=== PATIENT | male | born 1985 | race Caucasian/White ===

== ENCOUNTER 2022-10-17 20:24 | Inpatient (IN) | payer BC ==
[~2022-10-17 20:24] MED LIST: Iopamidol-370 76% 500 ML MDV (1 ML CHARGE) ONE
[2022-10-17 22:11] LABS: #Basophils 0.2 thou/uL (0.0-0.2); #Eosinphils 0.2 thou/uL (0.0-0.7); #Monocytes 3.4 thou/uL (0.11-0.59); #Neutrophils 21.7 thou/uL (1.40-6.50); %Basophils 0.7 % (0.0-1.0); %Eosinophils 0.7 % (0.0-10.0); %Lymphocytes 3.9 % (21.0-51.0); %Monocytes 12.8 % (0.0-10.0); %Neutrophils 80.7 % (42.0-75.0); Hematocrit 26.2 % (42.0-52.0); Hemoglobin 8.5 g/dL (14.0-18.0); Mean Corpuscular HGB CONC 32.4 g/dL (32.0-36.0); Mean Corpuscular Hemoglobin 27.6 pg (27.0-31.0); Mean Corpuscular Volume 85.1 fl (78.0-98.0); Platelet Count 192 10x3/uL (130-400); RBC Distribution Width 19.5 % (11.5-14.5); Red Blood Cell (RBC) Count 3.08 mill/uL (4.70-6.10); White Blood Cell (WBC) Count 26.9 10x3/uL (4.8-10.8)
[2022-10-17 22:13] LABS: Manual Diff?? YES
[2022-10-17] MEDS ORDERED: Acetaminophen 500 MG TAB ONE (22:16)
[2022-10-17] MEDS ORDERED: Piperacillin/Tazobactam 4.5 GM VIAL ONE (22:17)
[2022-10-17] MEDS ORDERED: Ondansetron PF 4 MG/2 ML Vial ONE (22:17)
[2022-10-17] MEDS ORDERED: Morphine 4 MG/ML VIAL ONE (22:17)
[2022-10-17 22:23] LABS: Bilirubin Negative (Negative); Blood, Urine 3+ (Negative); CAUTI Indications for Culture Pelvic or flank pain; Clarity Clear (Clear); Glucose, Urine (Dipstick) Normal (Negative); Ketone, Urine Negative (Negative); Leukocyte 250 Leu/uL (Negative); Nitrite Negative (Negative); Protein, Urine (Dipstick) 200 mg/dL (Neg-Trace); Specific Gravity, Urine 1.015 (1.002-1.036); Squamous Epithelial None Seen HPF (0-3); Urobilinogen Normal mg/dL (Less than 2); WBC/HPF 21-50 HPF (0-3); pH, Urine 6.5 (5.0-9.0)
[2022-10-17] MEDS ORDERED: VANCOMYCIN 1.25 GM/250 ML BAG 1.25 GM in Premix Bag 1 BAG IVPB SCH (22:30)
[2022-10-17 22:32] LABS: ALT (SGPT) 64 U/L (8-55); AST (SGOT) 50 U/L (5-34); Albumin 3.2 g/dL (3.5-5.0); Alkaline Phosphatase 271 U/L (40-110); Anion Gap 13 mmol/L (10-20); BUN (Urea Nitrogen) 18 mg/dL (8.9-20.6); Bilirubin, Total 0.8 mg/dL (0.2-1.2); Calc. Creatinine Clearance 0 mL/min (70-130); Calcium 9.1 mg/dL (7.8-10.44); Carbon Dioxide 25 mmol/L (22-29); Chloride 94 mmol/L (98-107); Estimated GFR 98; Globulin 3.8 g/dL (2.4-3.5); Glucose 121 mg/dL (70-105); Potassium 4.2 mmol/L (3.5-5.1); Sodium 128 mmol/L (136-145)
[2022-10-17 22:33] LABS: Lipase 20 U/L (8-78)
[2022-10-17 22:34] LABS: CellaVision Operator ID lab.sh2; Lymphocytes 5 % (21-51); Monocytes 6 % (0-10); Neutrophil 87 % (42-75); Platelet Adequacy Comment Platelets Normal; Polychromasia MODERATE = 3-4 cells HPF (0-2); Smudge Cells 6.1 %; Target Cells SLIGHT = 2-5 cells HPF (0-1); Tear Drops SLIGHT = 2-5 cells HPF (0-1); Total Cell Count 99
[2022-10-17 22:35] LABS: Bacteria/HPF 2+ HPF (None Seen)
[2022-10-17 22:36] LABS: Urine Culture Reflex Yes Yes
[2022-10-17 22:53] LABS: SARS-CoV-2 NAA Rapid Test Not Detected (NotDetected)
[2022-10-18] MEDS ORDERED: Acetaminophen 325 MG TAB PO PRN (03:12)
[2022-10-18 04:25] VITALS: BMI 25.7
[2022-10-18] MEDS ORDERED: Piperacillin/Tazobactam 3.375 GM in Sodium Chloride 0.9% 100 ML IVPB SCH (05:00)
[2022-10-18 05:08] LABS: #Basophils 0.1 thou/uL (0.0-0.2); #Eosinphils 0.5 thou/uL (0.0-0.7); #Monocytes 1.4 thou/uL (0.11-0.59); %Basophils 0.3 % (0.0-1.0); %Eosinophils 2.7 % (0.0-10.0); %Lymphocytes 3.5 % (21.0-51.0); %Monocytes 7.6 % (0.0-10.0); %Neutrophils 84.5 % (42.0-75.0); Hematocrit 24.8 % (42.0-52.0); Hemoglobin 7.7 g/dL (14.0-18.0); Mean Corpuscular Hemoglobin 26.7 pg (27.0-31.0); Mean Corpuscular Volume 86.1 fl (78.0-98.0); Mean Platelet Volume 10.2 fL (7.4-10.4); Platelet Count 171 10x3/uL (130-400); RBC Distribution Width 19.6 % (11.5-14.5); Red Blood Cell (RBC) Count 2.88 mill/uL (4.70-6.10); White Blood Cell (WBC) Count 18.9 10x3/uL (4.8-10.8)
[2022-10-18 05:36] LABS: AST (SGOT) 44 U/L (5-34); Albumin 2.9 g/dL (3.5-5.0); Anion Gap 13 mmol/L (10-20); BUN (Urea Nitrogen) 18 mg/dL (8.9-20.6); Calc. Creatinine Clearance 127 mL/min (70-130); Carbon Dioxide 25 mmol/L (22-29); Chloride 100 mmol/L (98-107); Estimated GFR 108; Globulin 2.9 g/dL (2.4-3.5); Glucose 103 mg/dL (70-105); Potassium 3.9 mmol/L (3.5-5.1); Protein, Total 5.8 g/dL (6.0-8.3); Sodium 134 mmol/L (136-145)
[2022-10-18] MEDS: Sodium Chloride 0.9% 1,000 ML IV SCH ×4 (05:43→20:59)
[2022-10-18 05:50] LABS: ALT (SGPT) 59 U/L (8-55); Alkaline Phosphatase 252 U/L (40-110)
[2022-10-18] MEDS: Vancomycin 1 GM in Premix Bag 1 BAG IVPB SCH ×3 (08:25→23:58)
[2022-10-18] MEDS: Morphine 4 MG/ML VIAL SLOW IVP PRN (08:29)
[2022-10-18] MEDS ORDERED: HYDROcodone/Acetaminophen 5/325 mg Tablet PO PRN (09:55)
[2022-10-18] MEDS ORDERED: Meropenem 1 GM in Sodium Chloride 0.9% 100 ML IVPB SCH ×2 (12:30→14:00)
[2022-10-18] MEDS: Ondansetron PF 4 MG/2 ML Vial IVP PRN ×2 (13:08→18:21)
[2022-10-18] MEDS: Meropenem 1 GM in Sodium Chloride 0.9% 100 ML IVPB SCH (20:58)
[2022-10-18 23:26] LABS: Vancomycin, Trough 17.7 ug/mL
[2022-10-19] MEDS: Meropenem 1 GM in Sodium Chloride 0.9% 100 ML IVPB SCH ×3 (05:24→21:21)
[2022-10-19 06:55] LABS: #Basophils 0.1 thou/uL (0.0-0.2); #Eosinphils 1.1 thou/uL (0.0-0.7); #Monocytes 1.6 thou/uL (0.11-0.59); #Neutrophils 9.9 thou/uL (1.40-6.50); %Basophils 0.5 % (0.0-1.0); %Eosinophils 8.1 % (0.0-10.0); %Monocytes 11.8 % (0.0-10.0); %Neutrophils 74.5 % (42.0-75.0); Hematocrit 21.9 % (42.0-52.0); Hemoglobin 6.9 g/dL (14.0-18.0); Mean Corpuscular HGB CONC 31.5 g/dL (32.0-36.0); Mean Corpuscular Hemoglobin 26.6 pg (27.0-31.0); Mean Corpuscular Volume 84.6 fl (78.0-98.0); Mean Platelet Volume 10.3 fL (7.4-10.4); Platelet Count 214 10x3/uL (130-400); RBC Distribution Width 19.8 % (11.5-14.5); Red Blood Cell (RBC) Count 2.59 mill/uL (4.70-6.10); White Blood Cell (WBC) Count 13.3 10x3/uL (4.8-10.8)
[2022-10-19 07:18] LABS: Anion Gap 12 mmol/L (10-20); BUN (Urea Nitrogen) 11 mg/dL (8.9-20.6); Calc. Creatinine Clearance 136 mL/min (70-130); Carbon Dioxide 23 mmol/L (22-29); Chloride 99 mmol/L (98-107); Estimated GFR 113; Glucose 105 mg/dL (70-105); Potassium 3.5 mmol/L (3.5-5.1); Sodium 130 mmol/L (136-145)
[2022-10-19] MEDS: Sodium Chloride 0.9% 1,000 ML IV SCH ×3 (08:32→23:03)
[2022-10-19] MEDS: Vancomycin 1 GM in Premix Bag 1 BAG IVPB SCH ×2 (08:33→15:48)
[2022-10-19] MEDS: Ondansetron PF 4 MG/2 ML Vial IVP PRN (08:33)
[2022-10-19] MEDS: Morphine 4 MG/ML VIAL SLOW IVP PRN (08:49)
[2022-10-19] MEDS ORDERED: Bisacodyl 5 MG TAB PO PRN (09:21)
[2022-10-19] MEDS ORDERED: Promethazine HCl 25 MG in Sodium Chloride 0.9% 50 ML IVPB PRN (11:32)
[2022-10-19] MEDS ORDERED: Ondansetron PF 4 MG/2 ML Vial IVP PRN (17:51)
[2022-10-19 18:54] LABS: Magnesium 1.7 mg/dL (1.6-2.6); Potassium 3.9 mmol/L (3.5-5.1)
[2022-10-19] MEDS ORDERED: Magnesium Sulfate In Water 4 GM in Premix Bag 1 BAG IVPB SCH (21:00)
[2022-10-20] MEDS: Vancomycin 1 GM in Premix Bag 1 BAG IVPB SCH ×3 (00:41→15:59)
[2022-10-20] MEDS: Meropenem 1 GM in Sodium Chloride 0.9% 100 ML IVPB SCH ×3 (05:20→22:24)
[2022-10-20 05:30] LABS: #Basophils 0.1 thou/uL (0.0-0.2); #Eosinphils 1.3 thou/uL (0.0-0.7); #Monocytes 1.1 thou/uL (0.11-0.59); #Neutrophils 6.1 thou/uL (1.40-6.50); %Basophils 0.5 % (0.0-1.0); %Eosinophils 13.8 % (0.0-10.0); %Lymphocytes 7.7 % (21.0-51.0); %Monocytes 11.7 % (0.0-10.0); %Neutrophils 65.5 % (42.0-75.0); Hemoglobin 6.8 g/dL (14.0-18.0); Mean Corpuscular HGB CONC 30.9 g/dL (32.0-36.0); Mean Corpuscular Hemoglobin 26.2 pg (27.0-31.0); Mean Corpuscular Volume 84.6 fl (78.0-98.0); Mean Platelet Volume 10.2 fL (7.4-10.4); Platelet Count 253 10x3/uL (130-400); RBC Distribution Width 20.1 % (11.5-14.5); White Blood Cell (WBC) Count 9.3 10x3/uL (4.8-10.8)
[2022-10-20 05:57] LABS: Anion Gap 11 mmol/L (10-20); BUN (Urea Nitrogen) 13 mg/dL (8.9-20.6); Calc. Creatinine Clearance 138 mL/min (70-130); Calcium 7.8 mg/dL (7.8-10.44); Carbon Dioxide 26 mmol/L (22-29); Chloride 100 mmol/L (98-107); Estimated GFR 114; Glucose 101 mg/dL (70-105); Magnesium 2.4 mg/dL (1.6-2.6); Potassium 3.5 mmol/L (3.5-5.1); Sodium 133 mmol/L (136-145)
[2022-10-20] MEDS: Sodium Chloride 0.9% 1,000 ML IV SCH ×2 (08:12→17:28)
[2022-10-20] MEDS: Morphine 4 MG/ML VIAL SLOW IVP PRN (09:28)
[2022-10-20] MEDS ORDERED: Potassium Chloride 20 MEQ TAB PO SCH (09:30)
[2022-10-20] MEDS ORDERED: Metoprolol Tartrate 25 MG TAB PO SCH (09:30)
[2022-10-20] MEDS ORDERED: Iopamidol 300 61% 30 ML VIAL ONE (11:24)
[2022-10-20] MEDS ORDERED: Regadenoson 0.4 MG/5 ML SYRINGE ONE (14:09)
[2022-10-20] MEDS ORDERED: Sterile Water 10 ML VIAL IVP SCH (15:00)
[2022-10-20] MEDS ORDERED: Activase 2 MG VIAL CATH SCH (15:00)
[2022-10-20] MEDS: Metoprolol Tartrate 25 MG TAB PO SCH (22:23)
[2022-10-20] MEDS ORDERED: Vancomycin 1 GM in Premix Bag 1 BAG IVPB SCH (22:45)
[2022-10-20 22:57] LABS: Hemoglobin 8.4 g/dL (14.0-18.0)
[2022-10-20 23:30] LABS: Vancomycin, Trough 21.6 ug/mL
[2022-10-21] MEDS ORDERED: Polyethylene Glycol 3350 17 GM Packet PO SCH (00:15)
[2022-10-21] MEDS ORDERED: Vancomycin 1 GM in Premix Bag 1 BAG IVPB SCH (01:00)
[2022-10-21] MEDS ORDERED: Vancomycin 1.5 GRAM/300 ML BAG 1.5 GM in Premix Bag 1 BAG IVPB SCH (01:00)
[2022-10-21] MEDS: Sodium Chloride 0.9% 1,000 ML IV SCH ×4 (01:00→20:51)
[2022-10-21] MEDS: Vancomycin 1.5 GRAM/300 ML BAG 1.5 GM in Premix Bag 1 BAG IVPB SCH ×2 (01:36→14:08)
[2022-10-21 05:18] LABS: Hematocrit 26.1 % (42.0-52.0); Hemoglobin 8.3 g/dL (14.0-18.0); Mean Corpuscular HGB CONC 31.8 g/dL (32.0-36.0); Mean Corpuscular Hemoglobin 27.1 pg (27.0-31.0); Mean Corpuscular Volume 85.3 fl (78.0-98.0); Mean Platelet Volume 9.9 fL (7.4-10.4); Platelet Count 303 10x3/uL (130-400); RBC Distribution Width 19.2 % (11.5-14.5); Red Blood Cell (RBC) Count 3.06 mill/uL (4.70-6.10)
[2022-10-21 05:30] LABS: Delete Auto Diff?? YES; Manual Diff?? YES
[2022-10-21] MEDS: Meropenem 1 GM in Sodium Chloride 0.9% 100 ML IVPB SCH ×3 (05:40→20:50)
[2022-10-21 05:48] LABS: Anion Gap 12 mmol/L (10-20); BUN (Urea Nitrogen) 10 mg/dL (8.9-20.6); Calc. Creatinine Clearance 146 mL/min (70-130); Calcium 8.3 mg/dL (7.8-10.44); Carbon Dioxide 25 mmol/L (22-29); Chloride 102 mmol/L (98-107); Estimated GFR 116; Glucose 100 mg/dL (70-105); Potassium 3.7 mmol/L (3.5-5.1); Sodium 135 mmol/L (136-145)
[2022-10-21 05:54] LABS: Band 22 % (5-11); CellaVision Operator ID LAB.CLH1; Eosinophils 10 % (0-10); Hypochromia SLIGHT = 6-15 cells HPF (0-5); Lymphocytes 6 % (21-51); Macrocytosis SLIGHT = 6-15 cells HPF (0-5); Monocytes 8 % (0-10); Neutrophil 55 % (42-75); Platelet Adequacy Comment Platelets Normal; Poikilocytosis SLIGHT = 6-15 cells HPF (0-5); Polychromasia SLIGHT = 2-3 cells HPF (0-2); Total Cell Count 101
[2022-10-21] MEDS: Metoprolol Tartrate 25 MG TAB PO SCH ×2 (08:16→20:49)
[2022-10-21] MEDS: Polyethylene Glycol 3350 17 GM Packet PO SCH (08:17)
[2022-10-21] MEDS: Morphine 4 MG/ML VIAL SLOW IVP PRN (08:35)
[2022-10-22 01:25] LABS: Vancomycin, Trough 16.8 ug/mL
[2022-10-22] MEDS: Vancomycin 1.5 GRAM/300 ML BAG 1.5 GM in Premix Bag 1 BAG IVPB SCH ×2 (01:47→13:13)
[2022-10-22] MEDS: Sodium Chloride 0.9% 1,000 ML IV SCH ×2 (01:47→10:31)
[2022-10-22] MEDS: Meropenem 1 GM in Sodium Chloride 0.9% 100 ML IVPB SCH ×2 (04:52→13:13)
[2022-10-22 05:01] LABS: Hematocrit 27.5 % (42.0-52.0); Hemoglobin 8.7 g/dL (14.0-18.0); Mean Corpuscular HGB CONC 31.6 g/dL (32.0-36.0); Mean Corpuscular Hemoglobin 26.9 pg (27.0-31.0); Mean Corpuscular Volume 84.9 fl (78.0-98.0); Mean Platelet Volume 9.8 fL (7.4-10.4); Platelet Count 338 10x3/uL (130-400); RBC Distribution Width 19.5 % (11.5-14.5); Red Blood Cell (RBC) Count 3.24 mill/uL (4.70-6.10); White Blood Cell (WBC) Count 10.2 10x3/uL (4.8-10.8)
[2022-10-22 05:10] LABS: Delete Auto Diff?? YES; Manual Diff?? YES
[2022-10-22 05:30] LABS: Anion Gap 10 mmol/L (10-20); BUN (Urea Nitrogen) 11 mg/dL (8.9-20.6); Calc. Creatinine Clearance 143 mL/min (70-130); Carbon Dioxide 28 mmol/L (22-29); Chloride 101 mmol/L (98-107); Estimated GFR 115; Glucose 94 mg/dL (70-105); Potassium 3.9 mmol/L (3.5-5.1); Sodium 135 mmol/L (136-145)
[2022-10-22 05:50] LABS: Anisocytosis MODERATE=16-30 cells HPF (0-5); CellaVision Operator ID lab.sh2; Eosinophils 6 % (0-10); Hypochromia SLIGHT = 6-15 cells HPF (0-5); Lymphocytes 6 % (21-51); Macrocytosis SLIGHT = 6-15 cells HPF (0-5); Monocytes 6 % (0-10); Neutrophil 79 % (42-75); Platelet Adequacy Comment Platelets Normal; Polychromasia MODERATE = 3-4 cells HPF (0-2); Reactive Lymphocytes 3 % (0-10); Smudge Cells 39.4 %; Target Cells SLIGHT = 2-5 cells HPF (0-1); Total Cell Count 99
[2022-10-22] MEDS: Polyethylene Glycol 3350 17 GM Packet PO SCH (08:12)
[2022-10-22] MEDS: Morphine 4 MG/ML VIAL SLOW IVP PRN (08:32)
[2022-10-22 12:20] VITALS: BP 116/76; TEMP 97.6
== END 2022-10-22 17:22 | disposition home or self-care (01) | DRG 872 ==
LOC: ERS 20:24 → 2SW 10-18 02:58 → OBSVTOIN 10-19 02:56
PROVIDERS: ADMIT Family Medicine; ATTEND Internal Medicine
PROC: 0T25X0Z Change Drainage Device in Kidney, External Approach (ICD-10-PCS; principal; 2022-10-20)
PROC: 30233N1 Transfusion of Nonautologous Red Blood Cells into Peripheral Vein, Percutaneous Approach (ICD-10-PCS; 2022-10-20)
PROC: 3E03329 Introduction of Other Anti-infective into Peripheral Vein, Percutaneous Approach (ICD-10-PCS; 2022-10-20)
DX: A41.9 Sepsis, unspecified organism (principal); N39.0 Urinary tract infection, site not specified; E87.1 Hypo-osmolality and hyponatremia; I47.20 Ventricular tachycardia, unspecified; C77.9 Secondary and unspecified malignant neoplasm of lymph node, unspecified; C79.00 Secondary malignant neoplasm of unspecified kidney and renal pelvis; D64.9 Anemia, unspecified; Z86.718 Personal history of other venous thrombosis and embolism; Z20.822 Contact with and (suspected) exposure to COVID-19; Z98.890 Other specified postprocedural states; C62.90 Malignant neoplasm of unspecified testis, unspecified whether descended or undescended; Z79.899 Other long term (current) drug therapy
CPT/HCPCS: 36415; 36430; 50435; 71045; 74177; 78452; 80048; 80053; 80202; 81001; 82105; 83605; 83615; 83690; 83735; 84702; 85025; 86140; 86850; 86900; 86901; 87040; 87086; 93005; 93017; 93306; 96365; 96366; 96368; 96375; 97139; A9500; C1729; J1642; J1650; J2185; J2270; J2405; J2543; J2785; J2997; J3370; J3370-JW; J3475; J3490; J7050; P9016; Q9967

== ENCOUNTER 2022-12-09 07:19 | Outpatient (CLI) | payer BC ==
[2022-12-09] MEDS ORDERED: Iopamidol 370 76% 100 ML VIAL ONE (09:24)
== END 2022-12-09 07:20 | disposition home or self-care (01) ==
LOC: BICCT 07:19
PROVIDERS: ATTEND Internal Medicine Hematology & Oncology
DX: C62.91 Malignant neoplasm of right testis, unspecified whether descended or undescended (principal); R59.0 Localized enlarged lymph nodes; R14.3 Flatulence
CPT/HCPCS: 71260; 74177; Q9967

== ENCOUNTER 2022-12-21 13:15 | Inpatient (IN) | payer BC ==
[2022-12-21 13:51] LABS: Hematocrit 33.1 % (42.0-52.0); Hemoglobin 10.7 g/dL (14.0-18.0); Mean Corpuscular HGB CONC 32.3 g/dL (32.0-36.0); Mean Corpuscular Hemoglobin 27.3 pg (27.0-31.0); Mean Corpuscular Volume 84.4 fl (78.0-98.0); Mean Platelet Volume 9.1 fL (7.4-10.4); Platelet Count 233 10x3/uL (130-400); RBC Distribution Width 21.1 % (11.5-14.5); Red Blood Cell (RBC) Count 3.92 mill/uL (4.70-6.10); White Blood Cell (WBC) Count 13.7 10x3/uL (4.8-10.8)
[2022-12-21 13:53] LABS: Delete Auto Diff?? YES; Manual Diff?? YES
[2022-12-21 14:20] LABS: ALT (SGPT) 29 U/L (8-55); AST (SGOT) 12 U/L (5-34); Albumin 3.4 g/dL (3.5-5.0); Alkaline Phosphatase 70 U/L (40-110); Anion Gap 10 mmol/L (10-20); BUN (Urea Nitrogen) 31 mg/dL (8.9-20.6); Bilirubin, Total 0.9 mg/dL (0.2-1.2); Calc. Creatinine Clearance 0 mL/min (70-130); Calcium 7.9 mg/dL (7.8-10.44); Carbon Dioxide 21 mmol/L (22-29); Chloride 102 mmol/L (98-107); Estimated GFR 95; Globulin 2.1 g/dL (2.4-3.5); Glucose 110 mg/dL (70-105); Potassium 3.5 mmol/L (3.5-5.1); Protein, Total 5.5 g/dL (6.0-8.3); Sodium 129 mmol/L (136-145)
[2022-12-21 14:23] LABS: Anisocytosis MODERATE=16-30 cells HPF (0-5); Burr Cells SLIGHT = 2-5 cells HPF (0-1); CellaVision Operator ID LAB.KB; Lymphocytes 1 % (21-51); Neutrophil 99 % (42-75); Ovalocytes SLIGHT = 2-5 cells HPF (0-1); Platelet Adequacy Comment Platelets Normal; Polychromasia SLIGHT = 2-3 cells HPF (0-2); Total Cell Count 100
[2022-12-21] MEDS ORDERED: Ondansetron PF 4 MG/2 ML Vial ONE ×2 (14:39→14:47)
[2022-12-21 15:42] LABS: Lipase 18 U/L (8-78); Magnesium 1.2 mg/dL (1.6-2.6)
[2022-12-21] MEDS ORDERED: Acetaminophen 325 MG TAB PO PRN (16:28)
[2022-12-21] MEDS ORDERED: Loperamide HCl 2 MG CAP PO SCH (16:28)
[2022-12-21] MEDS ORDERED: Loperamide HCl 2 MG CAP ONE (16:35)
[2022-12-21] MEDS ORDERED: Magnesium Sulfate In Water 4 GM in Premix 1 BAG IVPB SCH (16:45)
[2022-12-21] MEDS ORDERED: Diphenoxylate HCl/Atropine Tablet PO SCH (16:45)
[2022-12-21] MEDS ORDERED: HYDROcodone/Acetaminophen 10/325 mg Tablet PO PRN (17:03)
[2022-12-21] MEDS: Sodium Chloride 0.9% 1,000 ML IV SCH (18:16)
[2022-12-21] MEDS: Famotidine 20 MG TAB PO SCH (21:08)
[2022-12-21] MEDS: Apixaban 5 MG TAB PO SCH (21:08)
[2022-12-22 05:28] LABS: Hematocrit 27.9 % (42.0-52.0); Mean Corpuscular HGB CONC 32.3 g/dL (32.0-36.0); Mean Corpuscular Hemoglobin 26.5 pg (27.0-31.0); Mean Corpuscular Volume 82.1 fl (78.0-98.0); Mean Platelet Volume 9.1 fL (7.4-10.4); Platelet Count 159 10x3/uL (130-400); RBC Distribution Width 20.6 % (11.5-14.5)
[2022-12-22 05:32] LABS: Delete Auto Diff?? YES; Manual Diff?? YES
[2022-12-22 05:54] LABS: Anion Gap 12 mmol/L (10-20); BUN (Urea Nitrogen) 19 mg/dL (8.9-20.6); Calc. Creatinine Clearance 158 mL/min (70-130); Calcium 7.3 mg/dL (7.8-10.44); Carbon Dioxide 15 mmol/L (22-29); Chloride 104 mmol/L (98-107); Estimated GFR 119; Glucose 105 mg/dL (70-105); Magnesium 1.9 mg/dL (1.6-2.6); Potassium 3.1 mmol/L (3.5-5.1); Sodium 128 mmol/L (136-145)
[2022-12-22 06:01] LABS: Anisocytosis SLIGHT = 6-15 cells HPF (0-5); Band 2 % (5-11); CellaVision Operator ID lab.abc; Lymphocytes 4 % (21-51); Microcytosis SLIGHT = 6-15 cells HPF (0-5); Monocytes 1 % (0-10); Neutrophil 93 % (42-75); Platelet Adequacy Comment Platelets Normal; Total Cell Count 100
[2022-12-22] MEDS: Sodium Chloride 0.9% 1,000 ML IV SCH ×2 (06:39→16:28)
[2022-12-22] MEDS: Famotidine 20 MG TAB PO SCH ×2 (08:16→19:52)
[2022-12-22] MEDS: Apixaban 5 MG TAB PO SCH ×2 (08:16→19:52)
[2022-12-22] MEDS: Loperamide HCl 2 MG CAP PO PRN ×2 (08:16→16:28)
[2022-12-22] MEDS: OLANZapine 5 MG TAB PO SCH (08:16)
[2022-12-22] MEDS ORDERED: Potassium Chloride 20 MEQ TAB PO SCH (08:30)
[2022-12-22] MEDS ORDERED: Cholestyramine/Aspartame 4 gm Packet PO SCH (10:30)
[2022-12-22] MEDS: Cholestyramine/Aspartame 4 gm Packet PO SCH (21:38)
[2022-12-23] MEDS ORDERED: Potassium Bicarbonate/Cit Ac 25 MEQ TAB PO SCH (08:00)
[2022-12-23] MEDS: Apixaban 5 MG TAB PO SCH (10:01)
[2022-12-23] MEDS: Calcium Carbonate 500 MG ChewTAB PO SCH ×2 (10:02→21:57)
[2022-12-23] MEDS: OLANZapine 5 MG TAB PO SCH (10:02)
[2022-12-23] MEDS: Famotidine 20 MG TAB PO SCH ×2 (10:02→20:43)
[2022-12-23] MEDS: HYDROcodone/Acetaminophen 10/325 mg Tablet PO PRN (10:12)
[2022-12-23] MEDS ORDERED: Iopamidol-370 76% 500 ML MDV (1 ML CHARGE) ONE (11:15)
[2022-12-23] MEDS ORDERED: Iopamidol 300 61% 100 ML VIAL FS ONE (11:29)
[2022-12-23] MEDS: Sodium Chloride 0.9% 1,000 ML IV SCH ×2 (12:29)
[2022-12-23] MEDS: Cholestyramine/Aspartame 4 gm Packet PO SCH (13:28)
[2022-12-23 14:06] LABS: Hematocrit 24.1 % (42.0-52.0); Hemoglobin 8.1 g/dL (14.0-18.0); Mean Corpuscular HGB CONC 33.6 g/dL (32.0-36.0); Mean Corpuscular Hemoglobin 27.4 pg (27.0-31.0); Mean Corpuscular Volume 81.4 fl (78.0-98.0); Mean Platelet Volume 9.1 fL (7.4-10.4); Platelet Count 118 10x3/uL (130-400); RBC Distribution Width 20.5 % (11.5-14.5); Red Blood Cell (RBC) Count 2.96 mill/uL (4.70-6.10); White Blood Cell (WBC) Count 0.5 10x3/uL (4.8-10.8)
[2022-12-23 14:29] LABS: Anion Gap 11 mmol/L (10-20); BUN (Urea Nitrogen) 11 mg/dL (8.9-20.6); Calc. Creatinine Clearance 165 mL/min (70-130); Calcium 7.6 mg/dL (7.8-10.44); Carbon Dioxide 19 mmol/L (22-29); Chloride 98 mmol/L (98-107); Estimated GFR 121; Glucose 74 mg/dL (70-105); Sodium 126 mmol/L (136-145)
[2022-12-23 14:33] LABS: Potassium 2.4 mmol/L (3.5-5.1)
[2022-12-23] MEDS ORDERED: Potassium Chloride 40 MEQ in Premix 1 BAG IVPB SCH (15:00)
[2022-12-23] MEDS: Potassium Chloride 20 MEQ TAB PO SCH ×2 (15:18→21:57)
[2022-12-23] MEDS: Potassium Chloride 20 MEQ in Premix 1 BAG IVPB SCH ×2 (15:19→21:50)
[2022-12-23 15:42] LABS: Hematocrit 24.9 % (42.0-52.0); Hemoglobin 8.3 g/dL (14.0-18.0); Manual Diff?? YES; Mean Corpuscular HGB CONC 33.3 g/dL (32.0-36.0); Mean Corpuscular Hemoglobin 27.6 pg (27.0-31.0); Mean Corpuscular Volume 82.7 fl (78.0-98.0); Mean Platelet Volume 9.4 fL (7.4-10.4); Platelet Count 111 10x3/uL (130-400); RBC Distribution Width 20.6 % (11.5-14.5); Red Blood Cell (RBC) Count 3.01 mill/uL (4.70-6.10); White Blood Cell (WBC) Count 0.6 10x3/uL (4.8-10.8)
[2022-12-23 15:43] LABS: Delete Auto Diff?? YES
[2022-12-23 16:13] LABS: Anisocytosis SLIGHT = 6-15 cells HPF (0-5); Band 33 % (5-11); CellaVision Operator ID LAB.MJL; Dohle Bodies SLIGHT; Eosinophils 1 % (0-10); Large Platelets 4.9 % (0-5); Lymphocytes 35 % (21-51); Metamyelocyte 8 % (0-0); Monocytes 3 % (0-10); Myelocyte 1 % (0-0); Neutrophil 11 % (42-75); Nucleated RBC (Manual Ct) 1 % (0); Ovalocytes SLIGHT = 2-5 cells HPF (0-1); Platelet Adequacy Comment Platelets Decreased; Poikilocytosis SLIGHT = 6-15 cells HPF (0-5); Polychromasia SLIGHT = 2-3 cells HPF (0-2); Reactive Lymphocytes 1 % (0-10); Schistocytes SLIGHT = 2-5 cells HPF (0-1); Total Cell Count 103
[2022-12-23] MEDS ORDERED: Magnesium 2 GM/50 ML(in water) 2 GM in Premix 1 BAG IVPB SCH (16:45)
[2022-12-23] MEDS: Ondansetron PF 4 MG/2 ML Vial IVP PRN (17:41)
[2022-12-23 18:51] LABS: Bacteria/HPF 4+ HPF (None Seen); Bilirubin Negative (Negative); Blood, Urine 3+ (Negative); Clarity Turbid (Clear); Glucose, Urine (Dipstick) Normal (Negative); Ketone, Urine Negative (Negative); Leukocyte 75 Leu/uL (Negative); Nitrite Negative (Negative); Protein, Urine (Dipstick) 100 mg/dL (Neg-Trace); RBC/HPF Greater than 50 HPF (0-3); Specific Gravity, Urine 1.013 (1.002-1.036); Squamous Epithelial None Seen HPF (0-3); Urobilinogen Normal mg/dL (Less than 2); WBC/HPF 21-50 HPF (0-3)
[2022-12-23] MEDS ORDERED: Sodium Chloride 0.9% 500 ML IV SCH (20:45)
[2022-12-24] MEDS ORDERED: Electrolyte Replacement Protocol 1 EACH FS SCH (02:30)
[2022-12-24 07:09] LABS: #Monocytes 0.1 thou/uL (0.11-0.59); #Neutrophils 0.2 thou/uL (1.40-6.50); %Basophils 4.8 % (0.0-1.0); %Lymphocytes 33.3 % (21.0-51.0); %Monocytes 11.9 % (0.0-10.0); Hematocrit 23.6 % (42.0-52.0); Hemoglobin 7.9 g/dL (14.0-18.0); Manual Diff?? YES; Mean Corpuscular HGB CONC 33.5 g/dL (32.0-36.0); Mean Corpuscular Hemoglobin 27.4 pg (27.0-31.0); Mean Corpuscular Volume 81.9 fl (78.0-98.0); Mean Platelet Volume 9.7 fL (7.4-10.4); Platelet Count 93 10x3/uL (130-400); RBC Distribution Width 20.4 % (11.5-14.5); Red Blood Cell (RBC) Count 2.88 mill/uL (4.70-6.10); White Blood Cell (WBC) Count 0.4 10x3/uL (4.8-10.8)
[2022-12-24 07:32] LABS: Anion Gap 12 mmol/L (10-20); BUN (Urea Nitrogen) 8 mg/dL (8.9-20.6); Calc. Creatinine Clearance 141 mL/min (70-130); Calcium 7.4 mg/dL (7.8-10.44); Carbon Dioxide 21 mmol/L (22-29); Chloride 94 mmol/L (98-107); Estimated GFR 115; Glucose 91 mg/dL (70-105); Magnesium 1.4 mg/dL (1.6-2.6); Potassium 2.7 mmol/L (3.5-5.1); Sodium 124 mmol/L (136-145)
[2022-12-24] MEDS ORDERED: Magnesium Sulfate In Water 4 GM in Premix 1 BAG IVPB SCH (08:00)
[2022-12-24] MEDS ORDERED: Potassium Phosphate 15 MMOL in Sodium Chloride 0.9% 100 ML IVPB SCH (08:00)
[2022-12-24] MEDS: Famotidine 20 MG TAB PO SCH (08:27)
[2022-12-24] MEDS: Calcium Carbonate 500 MG ChewTAB PO SCH ×2 (08:27→20:13)
[2022-12-24] MEDS: OLANZapine 5 MG TAB PO SCH (08:27)
[2022-12-24 08:39] LABS: Anisocytosis SLIGHT = 6-15 cells HPF (0-5); Band 24 % (5-11); CellaVision Operator ID LAB.GE; Large Platelets 2.2 % (0-5); Lymphocytes 41 % (21-51); Metamyelocyte 4 % (0-0); Monocytes 14 % (0-10); Myelocyte 1 % (0-0); Neutrophil 11 % (42-75); Platelet Adequacy Comment Platelets Decreased; Polychromasia MODERATE = 3-4 cells HPF (0-2); Reactive Lymphocytes 1 % (0-10); Total Cell Count 93
[2022-12-24] MEDS: Potassium Chloride 20 MEQ in Premix 1 BAG IVPB SCH ×3 (08:55→12:52)
[2022-12-24] MEDS: Diphenoxylate HCl/Atropine Tablet PO PRN (10:42)
[2022-12-24] MEDS: HYDROcodone/Acetaminophen 10/325 mg Tablet PO PRN (11:59)
[2022-12-24 12:05] LABS: Campy jejuni + coli by PCR Negative (Negative); STEC Shiga Toxin 1+2 Negative (Negative); Salmonella spp. by PCR Negative (Negative); Shigella spp + EIEC by PCR Negative (Negative)
[2022-12-24] MEDS ORDERED: 1/2 NS w/KCL 20 mEq 1,000 ML IV SCH (20:00)
[2022-12-24] MEDS: Sodium Chloride 0.9% 1,000 ML IV SCH (20:13)
[2022-12-25 04:56] LABS: Hematocrit 20.1 % (42.0-52.0); Hemoglobin 6.8 g/dL (14.0-18.0); Manual Diff?? YES; Mean Corpuscular HGB CONC 33.8 g/dL (32.0-36.0); Mean Corpuscular Hemoglobin 26.9 pg (27.0-31.0); Mean Platelet Volume 10.6 fL (7.4-10.4); RBC Distribution Width 19.9 % (11.5-14.5); Red Blood Cell (RBC) Count 2.53 mill/uL (4.70-6.10); White Blood Cell (WBC) Count 0.3 10x3/uL (4.8-10.8)
[2022-12-25 05:00] LABS: Platelet Count 66 10x3/uL (130-400)
[2022-12-25 05:02] LABS: Delete Auto Diff?? YES; Mean Corpuscular Volume 79.4 fl (78.0-98.0)
[2022-12-25 05:30] LABS: Anion Gap 11 mmol/L (10-20); BUN (Urea Nitrogen) 8 mg/dL (8.9-20.6); Calc. Creatinine Clearance 158 mL/min (70-130); Carbon Dioxide 19 mmol/L (22-29); Chloride 92 mmol/L (98-107); Estimated GFR 119; Glucose 96 mg/dL (70-105); Sodium 120 mmol/L (136-145)
[2022-12-25 05:33] LABS: Potassium 2.3 mmol/L (3.5-5.1)
[2022-12-25 05:45] LABS: Band 36 % (5-11); CellaVision Operator ID LAB.CLH1; Hypochromia MODERATE=16-30 cells HPF (0-5); Lymphocytes 21 % (21-51); Metamyelocyte 7 % (0-0); Monocytes 18 % (0-10); Neutrophil 7 % (42-75); Nucleated RBC (Manual Ct) 4 % (0); Platelet Adequacy Comment Platelets Decreased; Polychromasia SLIGHT = 2-3 cells HPF (0-2); Reactive Lymphocytes 4 % (0-10); Total Cell Count 28
[2022-12-25] MEDS: Sodium Chloride 0.9% 1,000 ML IV SCH ×2 (06:14→22:23)
[2022-12-25] MEDS ORDERED: Sodium Chloride 0.9% 500 ML IV SCH (08:00)
[2022-12-25] MEDS ORDERED: Cosyntropin 250 MCG VIAL SLOW IVP SCH (08:15)
[2022-12-25 08:47] LABS: Sodium 121 mmol/L (136-145)
[2022-12-25 08:55] LABS: Potassium 2.3 mmol/L (3.5-5.1)
[2022-12-25] MEDS ORDERED: Cefepime 2 GM in Sodium Chloride 0.9% 100 ML IVPB SCH (09:00)
[2022-12-25] MEDS: Calcium Carbonate 500 MG ChewTAB PO SCH ×2 (09:04→21:14)
[2022-12-25] MEDS: OLANZapine 5 MG TAB PO SCH (09:04)
[2022-12-25] MEDS: Potassium Chloride 20 MEQ in Premix 1 BAG IVPB SCH ×3 (09:06→13:53)
[2022-12-25] MEDS ORDERED: Loperamide HCl 2 MG CAP PO PRN ×2 (09:12→12:42)
[2022-12-25] MEDS ORDERED: Loperamide HCl 2 MG CAP PO SCH (09:15)
[2022-12-25] MEDS: Diphenoxylate HCl/Atropine Tablet PO PRN (09:18)
[2022-12-25] MEDS: HYDROcodone/Acetaminophen 10/325 mg Tablet PO PRN ×2 (09:18→09:23)
[2022-12-25] MEDS: Loperamide HCl 2 MG CAP PO PRN (09:18)
[2022-12-25 10:58] LABS: Magnesium 1.4 mg/dL (1.6-2.6)
[2022-12-25] MEDS: Diphenoxylate HCl/Atropine Tablet PO SCH ×3 (12:04→21:15)
[2022-12-25] MEDS ORDERED: Magnesium Sulfate In Water 4 GM in Premix 1 BAG IVPB SCH (14:00)
[2022-12-25] MEDS ORDERED: Potassium Chloride 40 MEQ in Premix 1 BAG IVPB SCH (14:30)
[2022-12-25] MEDS: Cefepime 2 GM in Sodium Chloride 0.9% 100 ML IVPB SCH (16:57)
[2022-12-25 20:30] LABS: Sodium 122 mmol/L (136-145)
[2022-12-25 20:43] LABS: Potassium 2.4 mmol/L (3.5-5.1)
[2022-12-25] MEDS: Potassium Chloride 40 MEQ in Premix 1 BAG IVPB SCH (22:06)
[2022-12-25 22:12] LABS: Hematocrit 23.6 % (42.0-52.0); Hemoglobin 8.3 g/dL (14.0-18.0)
[2022-12-26] MEDS: Potassium Chloride 40 MEQ in Premix 1 BAG IVPB SCH ×2 (01:34→22:41)
[2022-12-26] MEDS: Cefepime 2 GM in Sodium Chloride 0.9% 100 ML IVPB SCH ×3 (01:36→17:38)
[2022-12-26] MEDS: Diphenoxylate HCl/Atropine Tablet PO SCH (05:07)
[2022-12-26] MEDS: Sodium Chloride 0.9% 1,000 ML IV SCH ×3 (05:26→19:42)
[2022-12-26 06:53] LABS: Hematocrit 22.8 % (42.0-52.0); Manual Diff?? YES; Mean Corpuscular HGB CONC 35.1 g/dL (32.0-36.0); Mean Corpuscular Hemoglobin 28.4 pg (27.0-31.0); Mean Corpuscular Volume 80.9 fl (78.0-98.0); Mean Platelet Volume 9.5 fL (7.4-10.4); Red Blood Cell (RBC) Count 2.82 mill/uL (4.70-6.10); White Blood Cell (WBC) Count 0.6 10x3/uL (4.8-10.8)
[2022-12-26 06:54] LABS: Delete Auto Diff?? YES; Platelet Count 58 10x3/uL (130-400)
[2022-12-26 07:33] LABS: Anion Gap 12 mmol/L (10-20); BUN (Urea Nitrogen) 7 mg/dL (8.9-20.6); Calc. Creatinine Clearance 164 mL/min (70-130); Calcium 7.4 mg/dL (7.8-10.44); Carbon Dioxide 19 mmol/L (22-29); Chloride 95 mmol/L (98-107); Estimated GFR 120; Glucose 94 mg/dL (70-105); Magnesium 1.8 mg/dL (1.6-2.6); Potassium 2.7 mmol/L (3.5-5.1); Sodium 123 mmol/L (136-145)
[2022-12-26 07:36] LABS: Anisocytosis SLIGHT = 6-15 cells HPF (0-5); Band 8 % (5-11); CellaVision Operator ID lab.dlt; Eosinophils 2 % (0-10); Hypochromia SLIGHT = 6-15 cells HPF (0-5); Large Platelets 3.7 % (0-5); Lymphocytes 64 % (21-51); Monocytes 23 % (0-10); Neutrophil 1 % (42-75); Nucleated RBC (Manual Ct) 4 % (0); Platelet Adequacy Comment Platelets Decreased; Poikilocytosis SLIGHT = 6-15 cells HPF (0-5); Polychromasia SLIGHT = 2-3 cells HPF (0-2); RBC Morphology Within Normal Limits; Total Cell Count 108
[2022-12-26] MEDS ORDERED: Magnesium 2 GM/50 ML(in water) 2 GM in Premix 1 BAG IVPB SCH ×2 (09:00→22:30)
[2022-12-26] MEDS ORDERED: Diphenoxylate HCl/Atropine Tablet PO SCH (09:00)
[2022-12-26] MEDS: Potassium Chloride 20 MEQ TAB PO SCH ×2 (09:30→12:58)
[2022-12-26] MEDS: Calcium Carbonate 500 MG ChewTAB PO SCH (09:32)
[2022-12-26] MEDS: OLANZapine 5 MG TAB PO SCH (09:53)
[2022-12-26] MEDS: Ondansetron PF 4 MG/2 ML Vial IVP PRN ×2 (13:44→19:47)
[2022-12-26] MEDS: Promethazine 25 MG TAB PO PRN ×2 (15:39→20:58)
[2022-12-26] MEDS: HYDROcodone/Acetaminophen 10/325 mg Tablet PO PRN (20:58)
[2022-12-26 22:14] LABS: Anion Gap 12 mmol/L (10-20); BUN (Urea Nitrogen) 8 mg/dL (8.9-20.6); Calc. Creatinine Clearance 190 mL/min (70-130); Calcium 7.8 mg/dL (7.8-10.44); Carbon Dioxide 19 mmol/L (22-29); Chloride 97 mmol/L (98-107); Estimated GFR 126; Glucose 99 mg/dL (70-105); Magnesium 1.5 mg/dL (1.6-2.6); Sodium 126 mmol/L (136-145)
[2022-12-26 22:18] LABS: Potassium 2.3 mmol/L (3.5-5.1)
[2022-12-27] MEDS: Cefepime 2 GM in Sodium Chloride 0.9% 100 ML IVPB SCH ×3 (01:24→16:46)
[2022-12-27] MEDS: Ondansetron PF 4 MG/2 ML Vial IVP PRN ×3 (01:54→18:28)
[2022-12-27] MEDS: HYDROcodone/Acetaminophen 10/325 mg Tablet PO PRN ×2 (01:55→05:35)
[2022-12-27] MEDS: Potassium Chloride 40 MEQ in Premix 1 BAG IVPB SCH (02:01)
[2022-12-27] MEDS: Sodium Chloride 0.9% 1,000 ML IV SCH ×2 (02:15→21:21)
[2022-12-27] MEDS: Diphenoxylate HCl/Atropine Tablet PO PRN (03:11)
[2022-12-27 04:16] LABS: Hematocrit 22.8 % (42.0-52.0); Hemoglobin 8.1 g/dL (14.0-18.0); Manual Diff?? YES; Mean Corpuscular HGB CONC 35.5 g/dL (32.0-36.0); Mean Corpuscular Hemoglobin 28.1 pg (27.0-31.0); Mean Corpuscular Volume 79.2 fl (78.0-98.0); Mean Platelet Volume 9.4 fL (7.4-10.4); Red Blood Cell (RBC) Count 2.88 mill/uL (4.70-6.10); White Blood Cell (WBC) Count 1.5 10x3/uL (4.8-10.8)
[2022-12-27 04:22] LABS: Delete Auto Diff?? YES; Platelet Count 51 10x3/uL (130-400)
[2022-12-27 04:39] LABS: Anion Gap 13 mmol/L (10-20); BUN (Urea Nitrogen) 8 mg/dL (8.9-20.6); Calc. Creatinine Clearance 187 mL/min (70-130); Calcium 7.6 mg/dL (7.8-10.44); Carbon Dioxide 17 mmol/L (22-29); Chloride 98 mmol/L (98-107); Estimated GFR 125; Glucose 94 mg/dL (70-105); Magnesium 1.7 mg/dL (1.6-2.6); Potassium 2.7 mmol/L (3.5-5.1); Sodium 125 mmol/L (136-145)
[2022-12-27 05:19] LABS: Band 15 % (5-11); CellaVision Operator ID LAB.CLH1; Hypochromia SLIGHT = 6-15 cells HPF (0-5); Large Platelets 9.2 % (0-5); Lymphocytes 34 % (21-51); Metamyelocyte 2 % (0-0); Monocytes 33 % (0-10); Myelocyte 3 % (0-0); Neutrophil 2 % (42-75); Nucleated RBC (Manual Ct) 6 % (0); Platelet Adequacy Comment Platelets Decreased; Polychromasia SLIGHT = 2-3 cells HPF (0-2); Promyelocytes 6 % (0-0); Reactive Lymphocytes 3 % (0-10); Total Cell Count 109; Toxic Granulation SLIGHT
[2022-12-27] MEDS: Loperamide HCl 2 MG CAP PO PRN ×2 (05:44→21:22)
[2022-12-27] MEDS: Promethazine 25 MG TAB PO PRN (06:16)
[2022-12-27] MEDS ORDERED: Magnesium 2 GM/50 ML(in water) 2 GM in Premix 1 BAG IVPB SCH (08:00)
[2022-12-27 08:06] LABS: Potassium 2.9 mmol/L (3.5-5.1)
[2022-12-27] MEDS: OLANZapine 5 MG TAB PO SCH (08:16)
[2022-12-27] MEDS: Potassium Chloride 20 MEQ TAB PO SCH ×2 (09:22→12:53)
[2022-12-27 09:52] LABS: Phosphorus Less than 1.0 mg/dL (2.3-4.7)
[2022-12-27] MEDS ORDERED: Potassium Phosphate 30 MMOL in Sodium Chloride 0.9% 250 ML 250 ML IVPB SCH (11:00)
[2022-12-28] MEDS: Cefepime 2 GM in Sodium Chloride 0.9% 100 ML IVPB SCH ×3 (00:13→17:44)
[2022-12-28] MEDS: Sodium Chloride 0.9% 1,000 ML IV SCH (02:41)
[2022-12-28] MEDS: Loperamide HCl 2 MG CAP PO PRN ×2 (03:06→08:23)
[2022-12-28 03:09] LABS: Hemoglobin 9.4 g/dL (14.0-18.0); Manual Diff?? YES; Mean Corpuscular HGB CONC 34.8 g/dL (32.0-36.0); Mean Corpuscular Hemoglobin 28.1 pg (27.0-31.0); Mean Corpuscular Volume 80.6 fl (78.0-98.0); Mean Platelet Volume 10.7 fL (7.4-10.4); RBC Distribution Width 18.6 % (11.5-14.5); Red Blood Cell (RBC) Count 3.35 mill/uL (4.70-6.10); White Blood Cell (WBC) Count 9.3 10x3/uL (4.8-10.8)
[2022-12-28 03:30] LABS: Delete Auto Diff?? YES; Platelet Count 66 10x3/uL (130-400)
[2022-12-28 03:36] LABS: Anion Gap 13 mmol/L (10-20); BUN (Urea Nitrogen) 5 mg/dL (8.9-20.6); Calc. Creatinine Clearance 177 mL/min (70-130); Calcium 7.8 mg/dL (7.8-10.44); Carbon Dioxide 18 mmol/L (22-29); Chloride 100 mmol/L (98-107); Estimated GFR 123; Glucose 97 mg/dL (70-105); Magnesium 1.2 mg/dL (1.6-2.6); Phosphorus Less than 1.0 mg/dL (2.3-4.7); Sodium 128 mmol/L (136-145)
[2022-12-28 03:37] LABS: Potassium 2.6 mmol/L (3.5-5.1)
[2022-12-28 03:58] LABS: Anisocytosis SLIGHT = 6-15 cells HPF (0-5); Band 27 % (5-11); CellaVision Operator ID lab.sh2; Dohle Bodies MODERATE; Eosinophils 1 % (0-10); Large Platelets 0.9 % (0-5); Lymphocytes 17 % (21-51); Macrocytosis SLIGHT = 6-15 cells HPF (0-5); Monocytes 29 % (0-10); Neutrophil 23 % (42-75); Nucleated RBC (Manual Ct) 3 % (0); Ovalocytes SLIGHT = 2-5 cells HPF (0-1); Platelet Adequacy Comment Platelets Decreased; Polychromasia SLIGHT = 2-3 cells HPF (0-2); Smudge Cells 15.5 %; Total Cell Count 110; Toxic Granulation SLIGHT
[2022-12-28] MEDS ORDERED: Potassium Phosphate 30 MMOL in Sodium Chloride 0.9% 250 ML 250 ML IVPB SCH ×2 (06:30→20:45)
[2022-12-28] MEDS: Potassium Chloride 20 MEQ in Premix 1 BAG IVPB SCH ×4 (06:47→12:33)
[2022-12-28] MEDS ORDERED: Magnesium Sulfate In Water 4 GM in Premix 1 BAG IVPB SCH ×2 (08:00→20:45)
[2022-12-28] MEDS: HYDROcodone/Acetaminophen 10/325 mg Tablet PO PRN (08:24)
[2022-12-28] MEDS: OLANZapine 5 MG TAB PO SCH (09:10)
[2022-12-28 10:39] VITALS: BMI 26.7
[2022-12-28] MEDS ORDERED: Benzocaine/Menthol 1 LOZ LOZ PO PRN (10:40)
[2022-12-28] MEDS ORDERED: Communication Order-Pharmacy FS SCH (13:00)
[2022-12-28 16:06] LABS: Anion Gap 12 mmol/L (10-20); BUN (Urea Nitrogen) 5 mg/dL (8.9-20.6); Calc. Creatinine Clearance 193 mL/min (70-130); Calcium 7.3 mg/dL (7.8-10.44); Carbon Dioxide 20 mmol/L (22-29); Chloride 103 mmol/L (98-107); Estimated GFR 124; Glucose 100 mg/dL (70-105); Phosphorus 1.3 mg/dL (2.3-4.7); Potassium 2.8 mmol/L (3.5-5.1); Sodium 132 mmol/L (136-145)
[2022-12-28 20:19] LABS: Anion Gap 11 mmol/L (10-20); BUN (Urea Nitrogen) 4 mg/dL (8.9-20.6); Calc. Creatinine Clearance 184 mL/min (70-130); Calcium 7.7 mg/dL (7.8-10.44); Carbon Dioxide 20 mmol/L (22-29); Chloride 101 mmol/L (98-107); Estimated GFR 123; Glucose 106 mg/dL (70-105); Magnesium 1.4 mg/dL (1.6-2.6); Sodium 129 mmol/L (136-145)
[2022-12-28 20:23] LABS: Phosphorus Less than 1.0 mg/dL (2.3-4.7)
[2022-12-28 20:24] LABS: Potassium 2.5 mmol/L (3.5-5.1)
[2022-12-28] MEDS ORDERED: Potassium Chloride 40 MEQ in Premix 1 BAG IVPB SCH (20:45)
[2022-12-28] MEDS: Diphenoxylate HCl/Atropine Tablet PO SCH (20:47)
[2022-12-29] MEDS: Cefepime 2 GM in Sodium Chloride 0.9% 100 ML IVPB SCH ×3 (00:40→17:19)
[2022-12-29 01:56] LABS: Potassium 3.1 mmol/L (3.5-5.1)
[2022-12-29 04:18] LABS: #Monocytes 4.6 thou/uL (0.11-0.59); #Neutrophils 17.9 thou/uL (1.40-6.50); %Basophils 0.1 % (0.0-1.0); %Monocytes 16.6 % (0.0-10.0); %Neutrophils 63.9 % (42.0-75.0); Hematocrit 24.2 % (42.0-52.0); Hemoglobin 8.5 g/dL (14.0-18.0); Mean Corpuscular HGB CONC 35.1 g/dL (32.0-36.0); Mean Corpuscular Hemoglobin 28.3 pg (27.0-31.0); Mean Corpuscular Volume 80.7 fl (78.0-98.0); Mean Platelet Volume 10.1 fL (7.4-10.4)
[2022-12-29 04:23] LABS: Platelet Count 62 10x3/uL (130-400)
[2022-12-29 04:24] LABS: Manual Diff?? YES
[2022-12-29 04:42] LABS: Anion Gap 12 mmol/L (10-20); BUN (Urea Nitrogen) Less than 4 mg/dL (8.9-20.6); Calc. Creatinine Clearance 190 mL/min (70-130); Calcium 7.2 mg/dL (7.8-10.44); Carbon Dioxide 21 mmol/L (22-29); Chloride 101 mmol/L (98-107); Estimated GFR 124; Glucose 98 mg/dL (70-105); Potassium 2.7 mmol/L (3.5-5.1); Sodium 131 mmol/L (136-145)
[2022-12-29 04:43] LABS: Phosphorus 2.4 mg/dL (2.3-4.7)
[2022-12-29 04:53] LABS: Anisocytosis MODERATE=16-30 cells HPF (0-5); Band 50 % (5-11); CellaVision Operator ID LAB.CLH1; Eosinophils 1 % (0-10); Hypochromia SLIGHT = 6-15 cells HPF (0-5); Lymphocytes 3 % (21-51); Macrocytosis SLIGHT = 6-15 cells HPF (0-5); Metamyelocyte 4 % (0-0); Monocytes 8 % (0-10); Myelocyte 7 % (0-0); Neutrophil 21 % (42-75); Nucleated RBC (Manual Ct) 1 % (0); Platelet Adequacy Comment Platelets Decreased; Polychromasia SLIGHT = 2-3 cells HPF (0-2); Promyelocytes 3 % (0-0); Reactive Lymphocytes 3 % (0-10); Total Cell Count 108; Toxic Granulation SLIGHT
[2022-12-29] MEDS: Potassium Chloride 20 MEQ in Premix 1 BAG IVPB SCH ×2 (06:42→09:05)
[2022-12-29] MEDS: OLANZapine 5 MG TAB PO SCH (09:39)
[2022-12-29] MEDS: Diphenoxylate HCl/Atropine Tablet PO SCH (09:40)
[2022-12-29] MEDS ORDERED: Magnesium 2 GM/50 ML(in water) 2 GM in Premix 1 BAG IVPB SCH ×2 (11:00→12:00)
[2022-12-29] MEDS ORDERED: Potassium Chloride 20 MEQ TAB PO SCH (11:00)
[2022-12-29] MEDS ORDERED: Diphenoxylate HCl/Atropine Tablet PO PRN (14:46)
[2022-12-29] MEDS ORDERED: Cholecalciferol 1,000 UNITS (25 MCG) TAB PO SCH (15:00)
[2022-12-29 15:13] LABS: Potassium 2.9 mmol/L (3.5-5.1)
[2022-12-29] MEDS ORDERED: Potassium Chloride 40 MEQ in Premix 1 BAG IVPB SCH (16:45)
[2022-12-29] MEDS ORDERED: Potassium Chloride 20 MEQ in Premix 1 BAG IVPB SCH (17:00)
[2022-12-30] MEDS: Cefepime 2 GM in Sodium Chloride 0.9% 100 ML IVPB SCH ×3 (00:16→16:00)
[2022-12-30 05:13] LABS: Hematocrit 23.9 % (42.0-52.0); Hemoglobin 8.2 g/dL (14.0-18.0); Mean Corpuscular HGB CONC 34.3 g/dL (32.0-36.0); Mean Corpuscular Hemoglobin 28.4 pg (27.0-31.0); Mean Corpuscular Volume 82.7 fl (78.0-98.0); Mean Platelet Volume 10.3 fL (7.4-10.4); RBC Distribution Width 19.5 % (11.5-14.5); Red Blood Cell (RBC) Count 2.89 mill/uL (4.70-6.10); White Blood Cell (WBC) Count 44.4 10x3/uL (4.8-10.8)
[2022-12-30 05:24] LABS: Manual Diff?? YES; Platelet Count 77 10x3/uL (130-400)
[2022-12-30 05:25] LABS: Delete Auto Diff?? YES
[2022-12-30 05:32] LABS: Anion Gap 9 mmol/L (10-20); BUN (Urea Nitrogen) 4 mg/dL (8.9-20.6); Calc. Creatinine Clearance 195 mL/min (70-130); Calcium 7.2 mg/dL (7.8-10.44); Carbon Dioxide 28 mmol/L (22-29); Chloride 99 mmol/L (98-107); Estimated GFR 124; Glucose 101 mg/dL (70-105); Magnesium 1.3 mg/dL (1.6-2.6); Sodium 133 mmol/L (136-145)
[2022-12-30 05:39] LABS: Phosphorus 1.6 mg/dL (2.3-4.7)
[2022-12-30 06:34] LABS: Anisocytosis SLIGHT = 6-15 cells HPF (0-5); Band 6 % (5-11); CellaVision Operator ID lab.sh2; Dohle Bodies SLIGHT; Macrocytosis SLIGHT = 6-15 cells HPF (0-5); Monocytes 17 % (0-10); Neutrophil 77 % (42-75); Nucleated RBC (Manual Ct) 2 % (0); Ovalocytes SLIGHT = 2-5 cells HPF (0-1); Platelet Adequacy Comment Platelets Decreased; Polychromasia SLIGHT = 2-3 cells HPF (0-2); Smudge Cells 12.3 %; Tear Drops SLIGHT = 2-5 cells HPF (0-1); Total Cell Count 106
[2022-12-30] MEDS ORDERED: Potassium Chloride 20 MEQ TAB PO SCH ×2 (08:00→18:45)
[2022-12-30] MEDS ORDERED: Magnesium Sulfate In Water 4 GM in Premix 1 BAG IVPB SCH (08:00)
[2022-12-30 08:17] LABS: Adenovirus F 40-41 DETECTED (Not Detected); Astrovirus Not Detected (Not Detected); C. difficile toxin A+B Not Detected (Not Detected); Campylobacter by PCR Not Detected (Not Detected); Cryptosporidium Not Detected (Not Detected); Cyclospora cayetanensis Not Detected (Not Detected); Entamoeba histolytica Not Detected (Not Detected); Enteroaggregative E. coli Not Detected (Not Detected); Enteropathogenic E. coli Not Detected (Not Detected); Enterotoxigenic E. coli Not Detected (Not Detected); Giardia lamblia Not Detected (Not Detected); Norovirus GI-GII Not Detected (Not Detected); Plesiomonas shigelloides Not Detected (Not Detected); Rotavirus A Not Detected (Not Detected); Salmonella Not Detected (Not Detected); Sapovirus Not Detected (Not Detected); Shiga-toxin-producing E coli Not Detected (Not Detected); Shigella/Enteroinvasive E coli Not Detected (Not Detected); Vibrio Not Detected (Not Detected); Vibrio cholerae Not Detected (Not Detected); Yersinia enterocolitica Not Detected (Not Detected)
[2022-12-30] MEDS: Cholecalciferol 1,000 UNITS (25 MCG) TAB PO SCH (08:22)
[2022-12-30] MEDS: HYDROcodone/Acetaminophen 10/325 mg Tablet PO PRN ×3 (08:24→15:46)
[2022-12-30] MEDS: OLANZapine 5 MG TAB PO SCH (08:24)
[2022-12-30] MEDS: PHOS-NAK 1 PKT PACK PO SCH ×2 (08:24→11:34)
[2022-12-30 14:43] LABS: Potassium 3.3 mmol/L (3.5-5.1)
[2022-12-31] MEDS: Cefepime 2 GM in Sodium Chloride 0.9% 100 ML IVPB SCH ×2 (01:14→08:46)
[2022-12-31 06:29] LABS: Hematocrit 28.1 % (42.0-52.0); Hemoglobin 9.3 g/dL (14.0-18.0); Mean Corpuscular HGB CONC 33.1 g/dL (32.0-36.0); Mean Corpuscular Volume 84.6 fl (78.0-98.0); Mean Platelet Volume 11.5 fL (7.4-10.4); Platelet Count 119 10x3/uL (130-400); RBC Distribution Width 19.9 % (11.5-14.5); Red Blood Cell (RBC) Count 3.32 mill/uL (4.70-6.10)
[2022-12-31 06:35] LABS: Delete Auto Diff?? YES; Manual Diff?? YES
[2022-12-31 06:50] LABS: Anion Gap 12 mmol/L (10-20); BUN (Urea Nitrogen) 6 mg/dL (8.9-20.6); Calc. Creatinine Clearance 198 mL/min (70-130); Calcium 7.5 mg/dL (7.8-10.44); Carbon Dioxide 30 mmol/L (22-29); Chloride 96 mmol/L (98-107); Estimated GFR 125; Glucose 105 mg/dL (70-105); Magnesium 1.3 mg/dL (1.6-2.6); Potassium 3.2 mmol/L (3.5-5.1); Sodium 135 mmol/L (136-145)
[2022-12-31 06:51] LABS: Phosphorus 2.3 mg/dL (2.3-4.7)
[2022-12-31 07:30] LABS: Band 21 % (5-11); CellaVision Operator ID LAB.GE; Lymphocytes 2 % (21-51); Metamyelocyte 6 % (0-0); Monocytes 11 % (0-10); Myelocyte 11 % (0-0); Neutrophil 50 % (42-75); Nucleated RBC (Manual Ct) 1 % (0); Platelet Adequacy Comment Platelets Decreased; Polychromasia MODERATE = 3-4 cells HPF (0-2); Total Cell Count 105; Toxic Granulation SLIGHT
[2022-12-31] MEDS ORDERED: Magnesium Sulfate In Water 4 GM in Premix 1 BAG IVPB SCH (08:00)
[2022-12-31] MEDS: Cholecalciferol 1,000 UNITS (25 MCG) TAB PO SCH (08:45)
[2022-12-31] MEDS: Potassium Chloride 20 MEQ TAB PO SCH ×2 (08:45→16:11)
[2022-12-31] MEDS: OLANZapine 5 MG TAB PO SCH (08:46)
[2022-12-31] MEDS: HYDROcodone/Acetaminophen 10/325 mg Tablet PO PRN (08:57)
[2022-12-31 15:50] VITALS: BP 104/76; TEMP 97.6
== END 2022-12-31 17:25 | disposition home health service (06) | DRG 393 ==
LOC: ERS 13:15 → ERHOLD 16:28 → 2SW 19:23 → OBSVTOIN 12-22 11:59 → T4-A 12-22 20:55 → 2NO 12-23 18:48 → CCU 12-25 13:26 → MSONC 12-29 11:21
PROVIDERS: ADMIT Internal Medicine; ATTEND Family Medicine
PROC: 0T25X0Z Change Drainage Device in Kidney, External Approach (ICD-10-PCS; principal; 2022-12-23)
PROC: 30233N1 Transfusion of Nonautologous Red Blood Cells into Peripheral Vein, Percutaneous Approach (ICD-10-PCS; 2022-12-25)
PROC: 3E03329 Introduction of Other Anti-infective into Peripheral Vein, Percutaneous Approach (ICD-10-PCS; 2022-12-25)
DX: K52.1 Toxic gastroenteritis and colitis (principal); A41.52 Sepsis due to Pseudomonas; D61.810 Antineoplastic chemotherapy induced pancytopenia; A41.81 Sepsis due to Enterococcus; E87.1 Hypo-osmolality and hyponatremia; N39.0 Urinary tract infection, site not specified; E87.20 Acidosis, unspecified; J84.9 Interstitial pulmonary disease, unspecified; A08.2 Adenoviral enteritis; E86.0 Dehydration; E83.42 Hypomagnesemia; C62.90 Malignant neoplasm of unspecified testis, unspecified whether descended or undescended; T45.1X5A Adverse effect of antineoplastic and immunosuppressive drugs, initial encounter; E87.6 Hypokalemia; E83.51 Hypocalcemia; E83.39 Other disorders of phosphorus metabolism; Z79.01 Long term (current) use of anticoagulants; Z79.899 Other long term (current) drug therapy; Z86.718 Personal history of other venous thrombosis and embolism; Z85.47 Personal history of malignant neoplasm of testis; Z98.890 Other specified postprocedural states
CPT/HCPCS: 36415; 36416; 36430; 50435; 71045; 74018; 74177; 80048; 80053; 80400; 81003; 81015; 82248; 82306; 82533; 83605; 83615; 83690; 83735; 83930; 83935; 83970; 84100; 84300; 84443; 84550; 85025; 85027; 86850; 86900; 86901; 87040; 87077; 87086; 87186; 87324; 87449; 87505; 87507; 93005; 93010; 96361; 96374; 97139; C1729; J0692; J0834; J1447; J1642; J1650; J2405; J3475; J3480; J3490; J7030; J7050; P9016; Q0169; Q9967

== ENCOUNTER 2023-01-19 08:21 | Day surgery (SDC) | payer BC ==
[2023-01-19] MEDS ORDERED: diphenhydrAMINE 25 MG CAP PO SCH (08:45)
[2023-01-19] MEDS ORDERED: Acetaminophen 500 MG TAB PO SCH (08:45)
[2023-01-19] MEDS ORDERED: Acetaminophen 500 MG TAB ONE (09:10)
[2023-01-19 11:21] VITALS: TEMP 97.5
[2023-01-19 11:23] VITALS: BP 106/60
== END 2023-01-19 11:30 | disposition home or self-care (01) ==
LOC: ONC/OP 08:21
PROVIDERS: ATTEND Internal Medicine Hematology & Oncology
DX: D64.9 Anemia, unspecified (principal); D69.59 Other secondary thrombocytopenia
CPT/HCPCS: 36430; 86850; 86900; 86901; 99213; G0463; J1642; P9016

== ENCOUNTER 2023-01-27 06:34 | Outpatient (CLI) | payer BC ==
[2023-01-27] MEDS ORDERED: Iopamidol-370 76% 500 ML MDV (1 ML CHARGE) ONE (09:29)
[2023-01-27] MEDS ORDERED: GASTROGRAFIN 30 ML BOT ONE (09:29)
== END 2023-01-27 06:35 | disposition home or self-care (01) ==
LOC: BICCT 06:34 → CT 06:35
PROVIDERS: ATTEND Internal Medicine Hematology & Oncology
DX: C62.91 Malignant neoplasm of right testis, unspecified whether descended or undescended (principal); R19.09 Other intra-abdominal and pelvic swelling, mass and lump
CPT/HCPCS: 71260; 74177

== ENCOUNTER 2023-02-06 14:26 | Inpatient (IN) | payer BC ==
[2023-02-06 15:03] LABS: Hematocrit 24.5 % (42.0-52.0); Hemoglobin 7.9 g/dL (14.0-18.0); Manual Diff?? YES; Mean Corpuscular HGB CONC 32.2 g/dL (32.0-36.0); Mean Corpuscular Volume 93.2 fl (78.0-98.0); Mean Platelet Volume 9.5 fL (7.4-10.4); Platelet Count 307 10x3/uL (130-400); RBC Distribution Width 20.1 % (11.5-14.5); Red Blood Cell (RBC) Count 2.63 mill/uL (4.70-6.10); White Blood Cell (WBC) Count 40.1 10x3/uL (4.8-10.8)
[2023-02-06 15:04] LABS: Delete Auto Diff?? YES
[2023-02-06 15:16] LABS: INR-International Normal Ratio 1.7; PTT 31.6 sec (22.9-36.1); Prothrombin Time 20.8 sec (12.0-14.7)
[2023-02-06 15:26] LABS: ALT (SGPT) 70 U/L (8-55); AST (SGOT) 68 U/L (5-34); Albumin 3.1 g/dL (3.5-5.0); Alkaline Phosphatase 98 U/L (40-110); Anion Gap 17 mmol/L (10-20); BUN (Urea Nitrogen) 14 mg/dL (8.9-20.6); Bilirubin, Total 0.3 mg/dL (0.2-1.2); Calc. Creatinine Clearance 0 mL/min (70-130); Calcium 7.2 mg/dL (7.8-10.44); Carbon Dioxide 24 mmol/L (22-29); Chloride 99 mmol/L (98-107); Estimated GFR 115; Globulin 3.2 g/dL (2.4-3.5); Glucose 117 mg/dL (70-105); Potassium 3.6 mmol/L (3.5-5.1); Protein, Total 6.3 g/dL (6.0-8.3); Sodium 136 mmol/L (136-145)
[2023-02-06 15:29] LABS: Anisocytosis SLIGHT = 6-15 cells HPF (0-5); Band 10 % (5-11); Basophilic Stippling SLIGHT = 1-2 cells HPF (None Seen); CellaVision Operator ID LAB.MJL; Lymphocytes 4 % (21-51); Metamyelocyte 3 % (0-0); Monocytes 3 % (0-10); Myelocyte 3 % (0-0); Neutrophil 77 % (42-75); Nucleated RBC (Manual Ct) 1 % (0); Ovalocytes SLIGHT = 2-5 cells HPF (0-1); Platelet Adequacy Comment Platelets Normal; Poikilocytosis SLIGHT = 6-15 cells HPF (0-5); Polychromasia MODERATE = 3-4 cells HPF (0-2); Schistocytes SLIGHT = 2-5 cells HPF (0-1); Tear Drops SLIGHT = 2-5 cells HPF (0-1); Total Cell Count 101
[2023-02-06] MEDS ORDERED: Ondansetron PF 4 MG/2 ML Vial IVP PRN (16:37)
[2023-02-06] MEDS ORDERED: Acetaminophen 325 MG TAB PO PRN (16:37)
[2023-02-06] MEDS ORDERED: Ondansetron ODT 4 MG TAB PO PRN (16:37)
[2023-02-06] MEDS ORDERED: Sodium Chloride 0.9% 1,000 ML IV SCH (16:45)
[2023-02-06] MEDS ORDERED: Promethazine 25 MG TAB PO PRN (17:50)
[2023-02-06] MEDS ORDERED: diphenhydrAMINE 25 MG CAP PO PRN (17:50)
[2023-02-06] MEDS ORDERED: Ondansetron ODT 8 MG TAB PO PRN (17:50)
[2023-02-06] MEDS ORDERED: Albuterol 200 PUFF (6.7GM INHALER) INH PRN (17:50)
[2023-02-06] MEDS ORDERED: HYDROcodone/Acetaminophen 10/325 mg Tablet PO PRN (17:50)
[2023-02-06] MEDS ORDERED: Ipratropium/Albuterol 3 ML NEB NEB PRN (17:51)
[2023-02-06 18:28] LABS: SARS-CoV-2 NAA Rapid Test Not Detected (NotDetected)
[2023-02-06 22:40] VITALS: BMI 26.6
[2023-02-06] MEDS: Apixaban 5 MG TAB PO SCH (22:43)
[2023-02-06] MEDS: Sodium Chloride 0.9% 1,000 ML IV SCH (22:45)
[2023-02-06] MEDS: Cefepime 2 GM in Sodium Chloride 0.9% 100 ML IVPB SCH (23:49)
[2023-02-07] MEDS: Vancomycin (BATCH) 1.25 GM in Premix 1 BAG IVPB SCH ×3 (00:40→15:09)
[2023-02-07 07:35] LABS: Hematocrit 24.6 % (42.0-52.0); Hemoglobin 7.6 g/dL (14.0-18.0); Manual Diff?? YES; Mean Corpuscular HGB CONC 30.9 g/dL (32.0-36.0); Mean Corpuscular Hemoglobin 29.3 pg (27.0-31.0); Mean Platelet Volume 9.6 fL (7.4-10.4); Platelet Count 319 10x3/uL (130-400); RBC Distribution Width 19.9 % (11.5-14.5); Red Blood Cell (RBC) Count 2.59 mill/uL (4.70-6.10); White Blood Cell (WBC) Count 33.3 10x3/uL (4.8-10.8)
[2023-02-07 07:53] LABS: Delete Auto Diff?? YES
[2023-02-07 07:58] LABS: Anion Gap 13 mmol/L (10-20); BUN (Urea Nitrogen) 10 mg/dL (8.9-20.6); Calc. Creatinine Clearance 157 mL/min (70-130); Carbon Dioxide 24 mmol/L (22-29); Chloride 100 mmol/L (98-107); Estimated GFR 117; Glucose 92 mg/dL (70-105); Sodium 134 mmol/L (136-145)
[2023-02-07 08:07] LABS: Calcium 6.9 mg/dL (7.8-10.44)
[2023-02-07 08:32] LABS: Anisocytosis SLIGHT = 6-15 cells HPF (0-5); Band 1 % (5-11); CellaVision Operator ID LAB.NR; Hypochromia MODERATE=16-30 cells HPF (0-5); Lymphocytes 1 % (21-51); Macrocytosis SLIGHT = 6-15 cells HPF (0-5); Microcytosis SLIGHT = 6-15 cells HPF (0-5); Monocytes 6 % (0-10); Neutrophil 91 % (42-75); Nucleated RBC (Manual Ct) 1 % (0); Platelet Adequacy Comment Platelets Normal; Polychromasia SLIGHT = 2-3 cells HPF (0-2); Tear Drops SLIGHT = 2-5 cells HPF (0-1); Total Cell Count 101
[2023-02-07] MEDS: Sodium Chloride 0.9% 1,000 ML IV SCH (08:44)
[2023-02-07] MEDS: Apixaban 5 MG TAB PO SCH ×2 (08:45→20:01)
[2023-02-07] MEDS ORDERED: dilTIAZem CD 240 MG CAP PO SCH (09:00)
[2023-02-07] MEDS ORDERED: Calcium Gluconate 4.6 MEQ in Sodium Chloride 0.9% 100 ML IVPB ONE (09:56)
[2023-02-07] MEDS ORDERED: Potassium Chloride 40 MEQ in Premix 1 BAG IVPB SCH (10:00)
[2023-02-07] MEDS ORDERED: CALCIUM GLUC 1 GM/NS 50 ML 1 GM in Premix 1 BAG IVPB SCH (10:15)
[2023-02-07] MEDS: Potassium Chloride 20 MEQ in Premix 1 BAG IVPB SCH ×2 (11:00→15:13)
[2023-02-07] MEDS: Cefepime 2 GM in Sodium Chloride 0.9% 100 ML IVPB SCH (13:08)
[2023-02-07 15:58] LABS: Vancomycin, Trough 23.4 ug/mL
[2023-02-07 23:42] VITALS: BP 120/76; TEMP 97.8
[2023-02-08] MEDS: Cefepime 2 GM in Sodium Chloride 0.9% 100 ML IVPB SCH (01:04)
[2023-02-08] MEDS: Sodium Chloride 0.9% 1,000 ML IV SCH (01:05)
[2023-02-08] MEDS ORDERED: Calcium Chloride 1 GM/10 ML Abboject SYRINGE ONE (04:11)
[2023-02-08] MEDS ORDERED: EPINEPHrine 1 MG/10 ML Abboject SYRINGE ONE (04:11)
[2023-02-08] MEDS ORDERED: Amiodarone 150 MG/3 ML VIAL ONE (04:11)
[2023-02-08] MEDS ORDERED: Sodium Bicarb 50 MEQ/50 ML Abboject 8.4% SYRINGE ONE (04:11)
[2023-02-08] MEDS ORDERED: Vancomycin 1 GM in Premix 1 BAG IVPB SCH (16:00)
[2023-02-10] MEDS ORDERED: FLU VACC QS2023-24(6MOS UP)/PF 60 MCG/0.5 ML SYRINGE IM ONE (09:00)
== END 2023-02-08 09:49 | disposition expired | DRG 871 ==
LOC: ERS 14:26 → MSONC 16:20
PROVIDERS: ADMIT Internal Medicine; ATTEND Emergency Medicine
PROC: 3E03329 Introduction of Other Anti-infective into Peripheral Vein, Percutaneous Approach (ICD-10-PCS; 2023-02-06)
PROC: 5A12012 Performance of Cardiac Output, Single, Manual (ICD-10-PCS; principal; 2023-02-08)
DX: A41.9 Sepsis, unspecified organism (principal); J18.9 Pneumonia, unspecified organism; C79.9 Secondary malignant neoplasm of unspecified site; C62.90 Malignant neoplasm of unspecified testis, unspecified whether descended or undescended; E87.6 Hypokalemia; E83.51 Hypocalcemia; Z90.79 Acquired absence of other genital organ(s); Z98.890 Other specified postprocedural states; Z93.6 Other artificial openings of urinary tract status; Z79.899 Other long term (current) drug therapy; Z79.51 Long term (current) use of inhaled steroids; Z86.718 Personal history of other venous thrombosis and embolism; Z95.828 Presence of other vascular implants and grafts; I46.9 Cardiac arrest, cause unspecified; Z11.52 Encounter for screening for COVID-19; R09.02 Hypoxemia
CPT/HCPCS: 36415; 71045; 80048; 80053; 80202; 85025; 85610; 85730; 86850; 86900; 86901; 87040; 87070; 87077; 87081; 87149; 87186; 87205; 94640; J0613; J0692; J3370; J3480; J3490; J7050; J7620